=== PATIENT | female | born 1995 | race Caucasian/White ===

== ENCOUNTER → 2017-11-20 13:53 | Outpatient (CLI) | payer OTHER, SELFPAY ==
--- NOTE | 2017-11-20 13:54 | US_ITS ---
STUDY: ULTRASOUND OF THE FEMALE PELVIS - COMPLETE REASON FOR EXAM: Female, 22 years old. Normal bleeding. Pelvic pain. LMP: October 28, 2017. TECHNIQUE: Transabdominal and Transvaginal TECHNICAL QUALITY: Adequate. COMPARISON: CT of the abdomen and pelvis, February 21, 2017. FINDINGS: The uterus is anteverted and is in a midline position. The uterus measures 8.2 x 3.5 x 4.6 cm. Normal uterine cervix. The endometrium measures 4 mm in thickness, and is hyperechoic. There is no demonstrated endometrial mass. There is no demonstrated myometrial mass. I.U.D. - The patient does not have an I.U.D. The right ovary is visualized. The right ovary measures 2.5 x 1.6 x 1.5 cm. There are multiple follicles of the right ovary without a dominant cyst. There is no visualized right adnexal mass or complex lesion. There is normal arterial and normal venous vascularity. The left ovary is visualized. The left ovary measures 2.1 x 2.4 x 1.7 cm. There is no left ovarian cyst or ovarian mass. There is no visualized left adnexal mass or complex lesion. There is normal arterial and normal venous vascularity. There is no fluid in the cul-de-sac. The urinary bladder is grossly normal. US/Transvaginal Non- IMPRESSION: Normal female pelvis. Electronically Signed: Jose Evans DO at 16:09 EDT Tel [phone], Service support ,
--- NOTE | 2017-11-20 13:54 | US_ITS ---
STUDY: ULTRASOUND OF THE FEMALE PELVIS - COMPLETE REASON FOR EXAM: Female, 22 years old. Normal bleeding. Pelvic pain. LMP: October 28, 2017. TECHNIQUE: Transabdominal and Transvaginal TECHNICAL QUALITY: Adequate. COMPARISON: CT of the abdomen and pelvis, February 21, 2017. FINDINGS: The uterus is anteverted and is in a midline position. The uterus measures 8.2 x 3.5 x 4.6 cm. Normal uterine cervix. The endometrium measures 4 mm in thickness, and is hyperechoic. There is no demonstrated endometrial mass. There is no demonstrated myometrial mass. I.U.D. - The patient does not have an I.U.D. The right ovary is visualized. The right ovary measures 2.5 x 1.6 x 1.5 cm. There are multiple follicles of the right ovary without a dominant cyst. There is no visualized right adnexal mass or complex lesion. There is normal arterial and normal venous vascularity. The left ovary is visualized. The left ovary measures 2.1 x 2.4 x 1.7 cm. There is no left ovarian cyst or ovarian mass. There is no visualized left adnexal mass or complex lesion. There is normal arterial and normal venous vascularity. There is no fluid in the cul-de-sac. The urinary bladder is grossly normal. US/Pelvic (Non ) IMPRESSION: Normal female pelvis. Electronically Signed: Jose Evans DO at 16:09 EDT Tel [phone], Service support ,
== END ==
PROVIDERS: Family Provider Internal Medicine; PCP Internal Medicine; Visit Provider Nurse Practitioner Women's Health
DX: R10.2 Pelvic and perineal pain (principal)
CPT/HCPCS: 76830; 76856; 93976

== ENCOUNTER → 2019-03-25 10:56 | Outpatient (CLI) | payer OTHER, SELFPAY ==
[2018-11-29 09:41] VITALS: BMI 28.8
[2019-03-25 11:08] LABS: Mucous, Urine 0 SEEN /hpf (<or=2+); Red Blood Cells-Urine 0 SEEN /hpf (0-5); White Blood Cells 0 SEEN /hpf (0-5)
[2019-03-25 11:49] LABS: Color, Urine Yellow (Yellow); Glucose, Dipstick Normal (Normal); Ketone-Dipstick Negative (Negative); Leukocyte Esterase-Dipstick 25 /ul (Negative); Nitrite-Dipstick Negative (Negative); Occult Blood-Urine 50 /ul (Negative); Protein-Dipstick Negative (Negative); Urine Bilirubin Dipstick Negative (Negative); Urine Clarity Clear (Clear); Urine Urobilinogen Normal (Normal)
[2019-03-25 12:01] LABS: Bacteria RARE /hpf (None Seen); Squamous Epithelial Cells - UA 0-5 SEEN /hpf (5-10)
[2019-03-25 14:10] LABS: Vitamin B12 429 pg/mL (211-911)
== END ==
PROVIDERS: Family Provider Nurse Practitioner; PCP Nurse Practitioner; Referring Provider Nurse Practitioner; Visit Provider Nurse Practitioner
DX: R31.9 Hematuria, unspecified (principal); E53.8 Deficiency of other specified B group vitamins
CPT/HCPCS: 36415; 81001; 82607; 82746

== ENCOUNTER → 2020-01-09 12:54 | Outpatient (CLI) | payer OTHER, SELFPAY ==
[2020-01-09 08:56] VITALS: BMI 28.8
[2020-01-14 00:36] LABS: HPV Reflexed? NOT INDICATED
== END ==
PROVIDERS: PCP Family Medicine; Referring Provider Nurse Practitioner Women's Health; Visit Provider Nurse Practitioner Women's Health
DX: Z12.4 Encounter for screening for malignant neoplasm of cervix (principal)
CPT/HCPCS: 88175; G0145

== ENCOUNTER → 2020-01-28 13:32 | Outpatient (CLI) | payer OTHER, SELFPAY ==
[2020-01-09 08:56] VITALS: BMI 28.8
== END ==
PROVIDERS: PCP Family Medicine; Visit Provider Family Medicine Hospice and Palliative Medicine
DX: Z11.59 Encounter for screening for other viral diseases (principal)
CPT/HCPCS: 87635; 94799; U0003

== ENCOUNTER 2020-03-11 18:00 | Outpatient (RCR) | payer BC, OTHER, SELFPAY ==
[2020-01-09 08:56] VITALS: BMI 28.8
--- NOTE | 2020-02-11 08:58 | HP.PTEVAL ---
Patient's Visit Information PHUONG KEEN is a 24 year old F referred to Physical Therapy by Dr. Ketty Nichole MD with a diagnosis of R shoulder pain. Date of Evaluation: 01/29/20 Physical Therapist: Pedro Sharif DPT - Visit Plan Frequency: 1-2x /Week Duration: 4-6 Weeks Plan: Start with levator scap, rhomboid stretching, DN to same region. mid trap strengthening pec stretching. Postural strengthening. - Subjective Pt. is here today for her initial evaluation with diagnosis of R shoulder pain. Pt. reports having on and off pain for years, but has been worse recently. Pt. reports pain at R side of neck into her shoulder blade. 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 Pt. reports no mech of injury but has had increased symptoms throughout the day. No issues with sleeping. No N/T in either UE. Pt. reports feeling of tightness as well. Pt. has had temp relief with massage. Pt. reports no trigger of her symptoms, just worsens throughout the day. Occurs ~4 days per week. Pt. is hopeful to reduce symptoms in order to complete all recreational and job activities without limitations. - Pain R shoulder blade Pain Intensity (Out of 10): 3 Pain Intensity Range: 0, 6 - Objective POSTURE: Pt. is tall with a long neck and torso. Pt. tends to have a FH posture with incraesed thoracic kyphosis. Pt. is able to correct, but needs VC/TCing to do so. Normal shoulder postioning noted. PALPATION: Pt. has mild tenderness through R UT, worse pain at R levator scap and rhomboids. No pain with palpation on the L side. NEURO: normal throughout. Normal sensation, normal DTR of BUEs. ROM: cerivcal spine: flexion- normal, extension normal, Rotation- R tight mild increase NW, rotation L- NE, SB normal Bilat. R shoulder- full ROM, bt does have mild increase in symptoms with end range flexion and functional ER. MMT: pt. has 5/5 strength throughout BUEs, and 5/5 iso cervical spine. - Special Tests C/S Radiculapathy - Left Spurlings: Negative C/S Radiculapathy - Right Spurlings: Negative C/S Radiculapathy - Left Cervical distraction: Negative C/S Radiculapathy - Right Cervical distraction: Negative C/S Radiculapathy - Left Relief test: Negative C/S Radiculapathy - Right Relief test: Negative R Shoulder Lift Off Test - Subscapular Tear: Negative R Shoulder Empty Can - SS: Negative R Shoulder Belly Press - SupScap: Negative R Shoulder Neer - Impingement: Negative R Shoulder Carvalho Kevin - Impingement: Negative - Goals Goal 1:: LTG: Pt. to be I with HEP. Goal Time Frame: 4-6 Weeks Goal 2:: STG: Pt. to have <1-2 days of increased pain in R shoulder/scapular region. Goal Time Frame: 2-4 Weeks Goal 3:: LTG: Pt. to demonstrate proper posture throughout PT session, indicating increased postural awareness. Goal Time Frame: 4-6 Weeks Goal 4:: STG: PT. to have full R shoulder and cervical spine without increase in symptoms. Goal Time Frame: 2-4 Weeks Goal 5:: LTG: pt. to have no pain throughout work day. Goal Time Frame: 4-6 Weeks - Rehabilitation Potential Physical Therapy Diagnosis: Pt. has signs and symptoms consistent with R shoulder blade pain, closer to levator scapulea and rhomboid region. Pt. has limited cervical spine rotation secondary to tightness, levator scapulea/rhomboid pain on R side. Pt. does have poor posture, but is able to correct. Pt. would benefit from PT to increase postural control/endurance and tissue tension reduction. Rehabilitation Potential: Excellent - Anticipated Interventions Patient/Client Instruction: Educate patient on: Condition, Plan of Care, Risk Factors, Benefits of Fitness Program For the Purpose of:: To facilitate caregiver knowledge, To improve self management, To prevent re-injury, To improve ability to perform tasks related to life management, To improve tolerance to ADL's Therapeutic Exercise to Include: Strength training, Power training, Postural training, Flexibilty training, Gait and locomotor training, Passive ROM, Active ROM For the Purpose of:: To decrease pain, To increase ROM, To improve nutrient delivery to tissue, To increase oxygenation perfusion, To improve muscle performance and motor function, To improve health of tissue, To decrease soft tissue restriction, To increase flexibility/ROM, To improve endurance Manual Therapy Techniques to Include: Functional dry needling, Soft tissue mobilization For the Purpose of:: To decrease pain, To decrease swelling/inflammation, To increase ROM, To improve nutrient delivery to tissue Thank you for the opportunity to evaluate your patient. For Medicare and Medicare HMO plans, please review the plan of care and approve it. It will need to be FAXED BACK to us at [phone] for Medicare purposes. For Medicare only, by signing this I certify the plan of care. Please let me know if there are questions or concerns regarding this plan of care. Physician Signature: Date:
== END 2020-03-11 19:00 | disposition home or self-care (01) ==
LOC: PT 18:00
PROVIDERS: PCP Family Medicine; Referring Provider Family Medicine; Visit Provider Family Medicine
DX: S46.811D Strain of other muscles, fascia and tendons at shoulder and upper arm level, right arm, subsequent encounter (principal)
CPT/HCPCS: 97110; 97140; 97161

== ENCOUNTER → 2020-04-10 08:58 | Outpatient (CLI) | payer BC, SELFPAY ==
[2020-01-09 08:56] VITALS: BMI 28.8
[2020-04-10 11:00] LABS: Absolute Lymphocyte Count 1.73 X10^3/uL (0.83-4.51); Absolute Neutrophil Count 2.4 X10^3/uL (2.0-7.7); Basophil# 0.05 X10^3/uL; Basophil% 1.1 % (0-1); Eosinophil# 0.13 X10^3/uL; Eosinophils% 2.8 % (0-5); Hemoglobin 13.8 g/dL (12.0-15.0); Lymphocyte # 1.73 X10^3/ul (4.0); Lymphocyte % 36.7 % (19-41); Mean Corp Hgb Conc 32.1 g/dL (32-36); Mean Corpuscular Hgb 28.4 pg (27.0-32.0); Mean Corpuscular Volume 88.5 fL (81-99); Mean Platelet Vol. 11.5 fl (6.2-12.0); Monocyte% 8.5 % (0-10); NRBC Flagged by Analyzer 0 % (0-5); Neutrophil % 50.7 % (47-70); Platelet Count 174 K/mm3 (150-450); RBC Distribution Width SD 38.5 fl (35.1-43.9); Red Blood Count 4.86 M/mm3 (4.2-5.4); White Blood Count 4.7 K/mm3 (4.4-11.0)
[2020-04-10 11:20] LABS: ALB/GLOB Ratio 0.9 RATIO (0.9-2.4); AST(SGOT) 23 U/L (15-37); Alanine Aminotransfer ALT/SGPT 45 U/L (13-56); Albumin, Serum 4.1 g/dL (3.2-5.0); Alkaline Phosphatase 53 U/L (45-117); Anion Gap 6 (5-15); BUN 14 mg/dL (7-18); BUN/Creat Ratio 13.9 RATIO (10-20); Calcium,Total 9.1 mg/dL (8.5-10.1); Chloride 107 mmol/L (98-107); Creatinine, Serum 1.01 mg/dL (0.55-1.02); EST Glomerular Filtration Rate 70 mL/min (>60); Est Glom Filt Rate - Afr Amer 85 mL/min (>60); Globulin 4.4 g/dL (2.2-4.2); Glucose 97 mg/dL (74-106); Potassium 3.9 mmol/L (3.5-5.1); Protein, Total 8.5 g/dL (6.4-8.2); Sodium Level 139 mmol/L (136-145)
[2020-04-12 16:07] LABS: Beef <0.10 kU/L (Class 0); Corn <0.10 kU/L (Class 0); Egg, Whole <0.10 kU/L (Class 0); Milk (Cow) 0.16 kU/L (Class 0/I); Peanut <0.10 kU/L (Class 0); Pork <0.10 kU/L (Class 0); Soybean <0.10 kU/L (Class 0); Wheat <0.10 kU/L (Class 0)
[2020-04-12 16:12] LABS: Chocolate <0.10 kU/L (Class 0)
[2020-04-13 20:07] LABS: Endomysial Antibody IgA Negative (Negative)
[2020-04-13 20:16] LABS: Deamidated Gliadin IgA 3 units (0-19); Deamidated Gliadin IgG 2 units (0-19); Immunoglobulin A 223 mg/dL (87-352); t-Transglutaminase IgA <2 U/mL (0-3)
== END ==
PROVIDERS: PCP Family Medicine; Referring Provider Family Medicine; Visit Provider Family Medicine
DX: K90.49 Malabsorption due to intolerance, not elsewhere classified (principal); R10.9 Unspecified abdominal pain
CPT/HCPCS: 36415; 80053; 82784; 83516; 84443; 85025; 86003; 86005; 86255

== ENCOUNTER → 2020-04-21 | Outpatient (CLI) | payer BC, SELFPAY ==
[2020-04-21 08:20] VITALS: BMI 28.6
== END | disposition home or self-care (01) ==
LOC: LABSPEC 13:05
PROVIDERS: PCP Family Medicine; Visit Provider Nurse Practitioner Women's Health
DX: N89.8 Other specified noninflammatory disorders of vagina (principal)
CPT/HCPCS: 87070; 87205

== ENCOUNTER → 2020-05-12 10:24 | Outpatient (CLI) | payer BC, SELFPAY ==
[2020-04-21 08:20] VITALS: BMI 28.6
[2020-05-12 11:42] LABS: hCG Titer Quant., Serum 886 mIU/mL (1-3)
== END ==
PROVIDERS: PCP Family Medicine; Referring Provider Nurse Practitioner Women's Health; Visit Provider Nurse Practitioner Women's Health
DX: N89.8 Other specified noninflammatory disorders of vagina (principal); N91.2 Amenorrhea, unspecified
CPT/HCPCS: 36415; 84702; 87070; 87077; 87186; 87205

== ENCOUNTER → 2020-05-14 12:00 | Outpatient (CLI) | payer BC, SELFPAY ==
[2020-05-12 10:37] VITALS: BMI 28.5
[2020-05-14 12:50] LABS: hCG Titer Quant., Serum 1095 mIU/mL (1-3)
== END ==
PROVIDERS: PCP Family Medicine; Referring Provider Nurse Practitioner Women's Health; Visit Provider Nurse Practitioner Women's Health
DX: N91.2 Amenorrhea, unspecified (principal)
CPT/HCPCS: 36415; 84702

== ENCOUNTER → 2020-05-16 09:26 | Outpatient (CLI) | payer BC, SELFPAY ==
[2020-05-12 10:37] VITALS: BMI 28.5
[2020-05-16 10:56] LABS: hCG Titer Quant., Serum 1189 mIU/mL (1-3)
== END ==
PROVIDERS: PCP Family Medicine; Referring Provider Obstetrics & Gynecology; Visit Provider Obstetrics & Gynecology
DX: N91.2 Amenorrhea, unspecified (principal)
CPT/HCPCS: 36415; 84702

== ENCOUNTER → 2020-05-19 13:34 | Outpatient (CLI) | payer BC, SELFPAY ==
[2020-05-12 10:37] VITALS: BMI 28.5
[2020-05-19 14:31] LABS: hCG Titer Quant., Serum 269 mIU/mL (1-3)
== END ==
PROVIDERS: PCP Family Medicine; Referring Provider Nurse Practitioner Women's Health; Visit Provider Nurse Practitioner Women's Health
DX: O02.1 Missed abortion (principal); Z3A.00 Weeks of gestation of pregnancy not specified
CPT/HCPCS: 36415; 84702; 86850; 86900; 86901

== ENCOUNTER → 2020-05-26 08:49 | Outpatient (CLI) | payer BC, SELFPAY ==
[2020-05-12 10:37] VITALS: BMI 28.5
--- NOTE | 2020-05-26 09:15 | POC_PTH ---
PATIENT: PHUONG KEEN LOC: [facility]#:[id number] AGE/SX: 29/F ROOM: RE05/26/[address]: NELLY Leonard : 1995 BED: DIS: SPEC #: [id number] RECD: 05/26/20 12:53 STATUS: SHANICE REFermin #: [id number] MARINE: 05/26/20 09:[address]: Estella Hardin NP DEPT: SURGICAL PATHOLOGY RECD BY: Krystal Bess ENTERED: 05/26/20 13:26 SP TYPE: PROD CONC OTHR DR: Dr. Tawanda Parker MD Tissues: Product of conception, NOS Procedures: Surgery Specimen Level IV HEADER OPERATION: SAB PRE-OP DIAGNOSIS: Products of conception TISSUE SUBMITTED: Products of conception MICROSCOPIC DIAGNOSIS Products of conception: A fragment of inflamed decidua. See comment. ELPIDIO:bishop 05/27/20 COMMENT Chorionic villi are not identified. Clinical correlation and appropriate follow up are necessary. MICROSCOPIC DESCRIPTION Slides are reviewed. GROSS DESCRIPTION Received is one container labeled with the patient's name and not further designated. The specimen consists of a glistening fragment of pink-christine soft tissue measuring 4 x 2 x 0.2 cm. The specimen is totally submitted in one cassette. / AM:bishop 05/26/20 TC:5 [facility]: [id number]
[2020-05-26 09:31] LABS: hCG Titer Quant., Serum 22 mIU/mL (1-3)
== END ==
PROVIDERS: PCP Family Medicine; Referring Provider Nurse Practitioner Women's Health; Visit Provider Nurse Practitioner Women's Health
DX: O03.9 Complete or unspecified spontaneous abortion without complication (principal)
CPT/HCPCS: 36415; 84702; 88305

== ENCOUNTER → 2020-06-03 12:57 | Outpatient (CLI) | payer BC, SELFPAY ==
[2020-05-12 10:37] VITALS: BMI 28.5
[2020-06-03 14:01] LABS: hCG Titer Quant., Serum 1 mIU/mL (1-3)
== END ==
PROVIDERS: PCP Family Medicine; Referring Provider Nurse Practitioner Women's Health; Visit Provider Nurse Practitioner Women's Health
DX: O03.9 Complete or unspecified spontaneous abortion without complication (principal)
CPT/HCPCS: 36415; 84702

== ENCOUNTER → 2020-11-16 08:48 | Outpatient (CLI) | payer BC, SELFPAY ==
[2020-05-12 10:37] VITALS: BMI 28.5
[2020-11-16 11:54] LABS: Estradiol 124.4 pg/mL; Follicle Stimulating Hormone 1.9 mIU/mL; Free T3 2.5 pg/mL (2.18-3.98); Luteinizing Hormone 1.6 mIU/mL; Prolactin 8.6 ng/mL; Thyroid Stim Hormone (TSH) 1.46 uIU/mL (0.358-3.74)
[2020-11-16 12:25] LABS: HIV - WCH Non-Reactive (Nonreactive); Hepatitis B Surface Antibody Reactive; Hepatitis B Surface Antigen Non-Reactive (Nonreactive); Hepatitis C Antibody Non-Reactive (Nonreactive); Progesterone Level 13.41 ng/mL (See Comment); Rubella IgG Reactive (Nonreactive); Syphilis Antibodies Non-reactive
[2020-11-17 20:51] LABS: V-Zoster IgG (Immunity) 264 index (Immune >165)
== END ==
PROVIDERS: PCP Family Medicine; Visit Provider Student in an Organized Health Care Education/Training Program
DX: Z31.69 Encounter for other general counseling and advice on procreation (principal); R10.2 Pelvic and perineal pain
CPT/HCPCS: 36415; 82670; 83001; 83002; 84144; 84146; 84443; 84481; 86703; 86706; 86762; 86780; 86787; 86803; 87340

== ENCOUNTER → 2020-12-22 17:16 | Outpatient (CLI) | payer BC, SELFPAY ==
[2020-05-12 10:37] VITALS: BMI 28.5
[2020-12-22 17:56] LABS: Absolute Lymphocyte Count 2.43 X10^3/uL (0.83-4.51); Absolute Neutrophil Count 5.1 X10^3/uL (2.0-7.7); Basophil# 0.06 X10^3/uL; Basophil% 0.7 % (0-1); Eosinophil# 0.16 X10^3/uL; Eosinophils% 1.9 % (0-5); Hematocrit 40.6 % (37-47); Hemoglobin 13.5 g/dL (12.0-15.0); Lymphocyte # 2.43 X10^3/ul (0.83-4.51); Lymphocyte % 29.1 % (19-41); Mean Corp Hgb Conc 33.3 g/dL (32-36); Mean Corpuscular Hgb 28.6 pg (27.0-32.0); Mean Platelet Vol. 11.5 fl (6.2-12.0); Monocyte# 0.56 X10^3/uL; Monocyte% 6.7 % (0-10); NRBC Flagged by Analyzer 0 % (0-5); Neutrophil # 5.09 X10^3/uL (2.7-7.7); Neutrophil % 61.1 % (47-70); Platelet Count 170 K/mm3 (150-450); RBC Distribution Width CV 12.2 % (11.6-14.6); RBC Distribution Width SD 38.3 fl (35.1-43.9); Red Blood Count 4.72 M/mm3 (4.2-5.4); White Blood Count 8.3 K/mm3 (4.4-11.0)
[2020-12-23 09:58] LABS: HIV - WCH Non-Reactive (Nonreactive); Hepatitis B Surface Antigen Non-Reactive (Nonreactive); Hepatitis C Antibody Non-Reactive (Nonreactive); Rubella IgG Reactive (Nonreactive); Syphilis Antibodies Non-reactive
[2020-12-26 03:06] LABS: Chlamydia By Nucleic Acid AMP Negative (Negative)
[2020-12-26 10:09] LABS: Gonococcus By Nucleic Acid AMP Negative (Negative)
== END ==
PROVIDERS: PCP Family Medicine; Visit Provider Student in an Organized Health Care Education/Training Program
DX: Z11.3 Encounter for screening for infections with a predominantly sexual mode of transmission (principal); Z32.01 Encounter for pregnancy test, result positive
CPT/HCPCS: 85025; 86703; 86762; 86780; 86803; 87086; 87088; 87340; 87491; 87591

== ENCOUNTER → 2021-01-14 14:12 | Outpatient (CLI) | payer BC, SELFPAY ==
[2020-05-12 10:37] VITALS: BMI 28.5
== END ==
PROVIDERS: PCP Family Medicine; Visit Provider Obstetrics & Gynecology
DX: Z00.00 Encounter for general adult medical examination without abnormal findings (principal)
CPT/HCPCS: 36415

== ENCOUNTER → 2021-05-03 08:48 | Outpatient (CLI) | payer OTHER, SELFPAY ==
[2021-05-03 10:00] LABS: Hematocrit 38.3 % (37-47); Hemoglobin 12.6 g/dL (12.0-15.0); Mean Corp Hgb Conc 32.9 g/dL (32-36); Mean Platelet Vol. 11.7 fl (6.2-12.0); Platelet Count 133 K/mm3 (150-450); RBC Distribution Width CV 13.4 % (11.6-14.6); RBC Distribution Width SD 43.5 fl (35.1-43.9); Red Blood Count 4.35 M/mm3 (4.2-5.4); White Blood Count 8.7 K/mm3 (4.4-11.0)
[2021-05-03 10:04] LABS: Glucose Challenge Gest 1H 50g 80 mg/dL (70-140)
== END ==
PROVIDERS: PCP Family Medicine; Visit Provider Obstetrics & Gynecology
DX: Z34.82 Encounter for supervision of other normal pregnancy, second trimester (principal)
CPT/HCPCS: 36415; 82950; 85027

== ENCOUNTER → 2021-05-24 11:26 | Outpatient (CLI) | payer OTHER, SELFPAY | PROVIDERS: PCP Family Medicine; Visit Provider Obstetrics & Gynecology | DX: O23.43 Unspecified infection of urinary tract in pregnancy, third trimester (principal); N39.0 Urinary tract infection, site not specified | CPT/HCPCS: 87086; 87088 ==

== ENCOUNTER 2021-07-09 15:37 | Outpatient (CLI) | payer OTHER, SELFPAY ==
[2021-07-09 16:27] LABS: Hematocrit 38.5 % (37-47); Hemoglobin 13.1 g/dL (12.0-15.0); Mean Corpuscular Hgb 29.1 pg (27.0-32.0); Mean Corpuscular Volume 85.6 fL (81-99); Mean Platelet Vol. 12.3 fl (6.2-12.0); Platelet Count 130 K/mm3 (150-450); RBC Distribution Width CV 13.2 % (11.6-14.6); RBC Distribution Width SD 40.9 fl (35.1-43.9); White Blood Count 8.4 K/mm3 (4.4-11.0)
[2021-07-09 17:05] LABS: Partial Thromboplast Time 30.4 Seconds (24.1-36.2); Prothrombin Time (Protime)PT. 12.3 SECONDS (11.7-14.9)
== END 2021-07-09 23:59 | disposition short-term general hospital (02) ==
LOC: WOBLAB 15:38
PROVIDERS: PCP Family Medicine; Visit Provider Student in an Organized Health Care Education/Training Program
DX: Z36.85 Encounter for antenatal screening for Streptococcus B (principal)
CPT/HCPCS: 36415; 85027; 85610; 85730; 87081

== ENCOUNTER 2021-07-17 22:04 | Outpatient (CLI) | payer OTHER, SELFPAY ==
[2021-07-17 22:18] VITALS: BP 131/82; PULSE 68; TEMP 36.7
[2021-07-17 22:38] VITALS: BMI 32.8
[2021-07-17 23:04] LABS: ROM Internal Control Test YES-OK TO RESULT pt. (Internal QC); ROM Patient Test Negative (Negative)
--- NOTE | 2021-07-18 09:12 | PCM.PN.OB ---
Subjective Subjective 26-year-old at 37/4 weeks presenting with leaking. Denies contractions. Reports movement. ROM negative. status reassuring with reactive NST. heart rate 125/moderate variability/accelerations+/no decelerations, toco quiet. Discharge home with labor precautions. Patient has follow-up in office this week. Objective Data Objective Data Vital Signs: Vital Signs Temp Pulse BP 98.0 F 68 131/82 H 07/17/21 22:18 07/17/21 22:18 07/17/21 22:18 Weight: 112.854 kg Body Mass Index (BMI) 32.8 Lab / Micro Data Labs: Laboratory Results - last 24 hr 07/17/21 22:25: Vag Amniotic Fld Detect Negative
== END 2021-07-17 23:59 | disposition home or self-care (01) ==
LOC: WPOUT 22:07 → WP 22:08
PROVIDERS: PCP Family Medicine; Visit Provider Student in an Organized Health Care Education/Training Program
DX: O42.92 Full-term premature rupture of membranes, unspecified as to length of time between rupture and onset of labor (principal); Z3A.37 37 weeks gestation of pregnancy
CPT/HCPCS: 59025; 59050; 84112; 99218; G0378

== ENCOUNTER 2021-08-03 15:17 | Outpatient (CLI) | payer OTHER, SELFPAY | END 2021-08-03 23:59 | disposition short-term general hospital (02) | LOC: LABSPEC 15:31 | PROVIDERS: PCP Family Medicine; Visit Provider Student in an Organized Health Care Education/Training Program | DX: Z03.818 Encounter for observation for suspected exposure to other biological agents ruled out (principal) | CPT/HCPCS: 87635; U0003; U0005 ==

== ENCOUNTER 2021-08-09 07:05 | Inpatient (IN) | payer OTHER, SELFPAY ==
[2021-08-09] VITALS (42 sets, daily range): BP systolic 100–164; BP diastolic 51–95; PULSE 36–84; RESP 16–18; TEMP 36.2–37.4; O2SAT 77–100; BMI 34.7
[2021-08-09] MEDS: 0.9% Saline Lock 10 ML Syringe IV ×2 (07:55→08:33)
--- NOTE | 2021-08-09 08:13 | HP.PCM.OB_ITS ---
History and Physical Date of Admission: 08/09/21
--- NOTE | 2021-08-09 08:13 | PCM.HP.BLA ---
History and Physical Date of Admission: 08/09/21
[2021-08-09 08:14] LABS: Absolute Lymphocyte Count 1.73 X10^3/uL (0.83-4.51); Absolute Neutrophil Count 4.6 X10^3/uL (2.0-7.7); Basophil# 0.05 X10^3/uL; Basophil% 0.7 % (0-1); Eosinophils% 1.4 % (0-5); Hematocrit 34.9 % (37-47); Hemoglobin 12.4 g/dL (12.0-15.0); Lymphocyte # 1.73 X10^3/ul (0.83-4.51); Lymphocyte % 24.6 % (19-41); Mean Corp Hgb Conc 35.5 g/dL (32-36); Mean Corpuscular Hgb 30.5 pg (27.0-32.0); Mean Corpuscular Volume 85.7 fL (81-99); Mean Platelet Vol. 11.9 fl (6.2-12.0); Monocyte# 0.54 X10^3/uL; Monocyte% 7.7 % (0-10); NRBC Flagged by Analyzer 0 % (0-5); Neutrophil # 4.55 X10^3/uL (2.7-7.7); Neutrophil % 64.7 % (47-70); Platelet Count 130 K/mm3 (150-450); RBC Distribution Width CV 12.9 % (11.6-14.6); Red Blood Count 4.07 M/mm3 (4.2-5.4)
--- NOTE | 2021-08-09 08:15 | PCM.HP.OB ---
HPI - General General Date of Admission: 08/09/21 HPI Narrative 26 yo at 40/6w, BROOKE 08/03/21 by LMP, admitted for term induction of labor. Denies leaking of fluid, vaginal bleeding, regular contractions. Reports movement. Denies headache, vision changes, chest pain or shortness of breath, nausea or vomiting, diarrhea or constipation, fevers or chills. complicated by: Covid x2 (growth AGA) and gestational thrombocytopenia PFSH PFS Medical History (Updated 08/09/21 @ 08:[address] Coreen Malin, DO) Hydradenitis Scoliosis Home Medications prenat.vits,peng,pye-[id number] 2 tab PO DAILY 04/21/20 [History Last Taken 07/17/21] Acidophilus Probiotic 175 mg PO.IVFORM DAILY 08/09/21 [History Last Taken Unknown] Colace 100 mg PO.IVFORM DAILY 08/09/21 [History Last Taken Unknown] Fish Oil 1,400 mg PO.IVFORM DAILY 08/09/21 [History Last Taken Unknown] Allergy/AdvReac Type Severity Reaction Status Date / Time metronidazole [From Flagyl] Allergy Rash Verified 08/09/21 08:10 adhesive tape AdvReac Rash Verified 08/09/21 08:10 Family History Father Thyroid disorder Mother Hypertension Social History Smoking Status: Never smoker alcohol intake: never substance use type: does not use caffeine: Yes what type of physical activity do you participate in: walking and weight training frequency: 3-4 times per week seatbelt use: always do you feel safe at home: Yes 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 2 Elective abortions Hx Para 0 Spontaneous abortions 1 Hx # Term Pregnancies Ectopic pregnancies Hx # Pregnancies Multiple births # of living children NST FHR Rate Baby A Baseline: 155 Accelerations:: 15 x 15 Decelerations:: None NST Reactive:: Yes Uterine Activity:: quiet ROS ROS Narrative Negative otherwise stated above Vital Signs Vital Signs Vital Signs: 08/09/21 07:58 Temperature 99.3 F H Temperature Source Temporal Pulse Rate 77 Blood Pressure 137/89 H BP Systolic 137 BP Diastolic 89 Pulse Ox 98 Weight Weight: 119.295 kg Body Mass Index (BMI) 34.7 Physical Exam Const alert, oriented x3 and no apparent distress HEENT normocephalic Head and Scalp: atraumatic Eyes PERRL Neck full ROM Resp normal respiratory effort and clear to auscultation bilaterally Cardio regular rate and regular rhythm GI normal to inspection, nondistended, normoactive bowel sounds Inspection: gravid Narrative: CE 1-2 cm per RN Extremity no pedal edema Neuro no focal motor deficits and no sensory deficits noted Psych mental status grossly normal Labs Labs Labs: Blood Type A POSITIVE Antibody Screen NEGATIVE Hct 34.9 % (37-47) L Hgb 12.4 g/dL (12.0-15.0) Syphilis Total Ab Non-reactive VZV IgG Antibody 264 index (Immune >165) Rubella IgG Antibody Reactive (Nonreactive) Hep Bs Antigen Non-Reactive (Nonreactive) Neisseria gonorrhoeae DNA (ANYA) Negative (Negative) HIV 1&2 Antibody Non-Reactive (Nonreactive) Glucose 1 Hr 50 gm 80 mg/dL (70-140) Miscellaneous Test Assessment & Plan (1) Elective induction of labor planned: PLAN: 26 yo at 40/6w, BROOKE 08/03/21 by LMP, admitted for term induction of labor. complicated by: Covid in and gestational thrombocytopenia. -Admit to labor and delivery -Cytotec induction. 25 mcg cytotec q4 hr -Routine orders -Anesthesia to see -GTCP, plt 130 today -COVID in , growth AGA
[2021-08-09] MEDS: miSOPROStol 25 MCG TABLET VAGINAL ×2 (08:16→13:23)
[2021-08-09] MEDS: Lactated Ringers 1,000 ML 50 ML IV (17:05)
[2021-08-09] MEDS: Lactated Ringers 500 ML 999 ML IV ×2 (17:11→21:00)
--- NOTE | 2021-08-09 17:35 | PCM.PN.BLA ---
Progress Note Pt seen and evaluated. 4 cm per RN. Up at bedside rocking with contractions. Very painful with contractions. No DUMONT, vision changes, chest pain, dyspnea, nausea/emesis, RUQ pain. BP elevated 160, repeat systolic 150s. BP elevation likely secondary to painful contractions. Will add CMP, LDH, urinalysis and urine protein/creatinine ratio SOCIAL SERVICE DIRECTOR in room now readying for epidural Cat I tracing Plan for AROM this evening. For pitocin. Discussed plan of care with bedside RN, pt and .
[2021-08-09] MEDS: fentaNYL-bupivacaine (epidural) 100 ML BAG EPIDURAL (17:45)
[2021-08-09 19:30] LABS: ALB/GLOB Ratio 0.6 RATIO (0.9-2.4); AST(SGOT) 20 U/L (15-37); Alanine Aminotransfer ALT/SGPT 24 U/L (13-56); Albumin, Serum 2.8 g/dL (3.2-5.0); Alkaline Phosphatase 114 U/L (45-117); Anion Gap 9 (5-15); BUN 9 mg/dL (7-18); BUN/Creat Ratio 10.9 RATIO (10-20); Calcium,Total 8.8 mg/dL (8.5-10.1); Chloride 107 mmol/L (98-107); Creatinine, Serum 0.82 mg/dL (0.55-1.02); EST Glomerular Filtration Rate 88 mL/min (>60); Est Glom Filt Rate - Afr Amer 106 mL/min (>60); Estimated Creatinine Clearance 121.58 ml/min; Globulin 4.5 g/dL (2.2-4.2); Glucose 89 mg/dL (74-106); LDH 216 U/L (84-246); Potassium 3.5 mmol/L (3.5-5.1); Protein, Total 7.3 g/dL (6.4-8.2); Sodium Level 138 mmol/L (136-145)
[2021-08-09 19:53] LABS: Bacteria 0 SEEN /hpf (None Seen); Mucous, Urine 0 SEEN /hpf (<or=2+); Red Blood Cells-Urine 0 SEEN /hpf (0-5); White Blood Cells 0 SEEN /hpf (0-5)
[2021-08-09 20:06] LABS: Protein, Urine (Random) 8.3 mg/dL (<11.9); Protein:Creat Ratio 251 mg/g CRE (0-200)
[2021-08-09 20:22] LABS: Color, Urine Yellow (Yellow); Glucose, Dipstick Normal (Normal); Ketone-Dipstick Negative (Negative); Leukocyte Esterase-Dipstick Negative /ul (Negative); Nitrite-Dipstick Negative (Negative); Occult Blood-Urine Negative /ul (Negative); Protein-Dipstick Negative (Negative); Urine Bilirubin Dipstick Negative (Negative); Urine Clarity Sl. Cloudy (Clear); Urine Urobilinogen Normal (Normal)
[2021-08-09 20:42] LABS: Squamous Epithelial Cells - UA 0-5 SEEN /hpf (5-10)
[2021-08-09] MEDS: Amnioinfusion- 0.9% NS 1,000 ML IV.SOLN. 1000 ML INTRA-UTER (21:57)
[2021-08-09] MEDS: Cefazolin 2 GM in 0.9% Normal Saline 100 ML IV (22:39)
--- NOTE | 2021-08-09 23:28 | EX.PCM.OBRPT ---
Maternal Data Information Final BROOKE: 08/03/21 Final BROOKE Source: LMP Details Operative Information Date of Procedure: 08/09/21 Pre-Operative Diagnosis: Pratt intrauterine , Nonreassuring heart tones Post-Operative Diagnosis: Pratt intrauterine , Nonreassuring heart tones Classification: Stat Estimated Blood Loss: 800cc Fluids Replaced: 1000cc Findings Description of Procedure: 26-year-old G2, P0 at 40/6 weeks admitted for induction of labor at term. Patient progressed through labor, artificial rupture membranes. heart rate deceleration to a ross of the 40s occurred in OB ER called, patient taken back to the operating room. Provider was notified and met in OR. Vaginal exam in operating room noted patient to be dilated at 9 cm and 0 station. heart tones had recovered at that time in the 90-100s. Discussed findings at that time with patient. Discussed possibility for attempt of vaginal delivery with pushing with next contraction. Also offered section at that time. Patient elected for attempt at vaginal delivery. Father brought into room. heart rate deceleration occurred again with ross into the 40s and 50s after contraction, prior to effort of pushing. Based on the heart rate and station, decision for emergent section made. Risks, benefits, alternatives discussed the patient. Risks include but are not limited to: Risk of bleeding to the point of transfusion, infection, injury to surrounding tissue including bowel/bladder requiring prolonged Andrea catheter use, VTE, ICU admission. Patient consented verbally. Patient in the supine position with a left lateral tilt. Abdomen splashed with Betadine. Prepped and draped in the usual sterile fashion. Pfannenstiel skin incision made with scalpel carried down to fascia which was nicked. Fascia extended bluntly. Rectus muscle bluntly and peritoneum entered bluntly. Bladder blade placed. Low transverse uterine incision made with scalpel, uterus entered bluntly and hysterotomy extended. Hand placed into the uterus noting occiput posterior position with head in the pelvis. Called for hand from below for assistance. During attempt of delivery of head, banjo scissors were used to T the uterus with small vertical incision. With the assistance of vaginal elevation of head, head delivered followed by body. Cord clamped and cut, baby to nursing. No nuchal cord. Manual extraction of placenta. Uterus exteriorized and cleared of all clots. Vertical portion of hysterotomy closed with a running locking stitch starting at the apex moving down towards the transverse portion of the incision. A second baseball stitch was placed vertically in this area as well. Transverse portion of the hysterotomy was then closed with a running locking stitch. A second vertical imbricating stitch was then placed. Bladder noted to be low below the hysterotomy. Uterus replaced into the abdomen. Orsi placed over hysterotomy closure, hemostatic. Peritoneum attempted to be closed however bowel and omentum was protruding therefore suture was cut and peritoneum not reapproximated. Fascia then closed with a running stitch. Examination completed during fascial closure to ensure that bowel and omentum were not incorporated into closure. Subcutaneous tissue closed with a running stitch. Skin closed with a running subcuticular stitch. Due to prolonged head elevation with hand from below, vaginal exam was completed. Vaginal exam did not note any vaginal lacerations, cervix intact. At the end of the procedure all needle, lap, sponge counts correct x3. Because of T of hysterotomy would advise against attempt for trial of labor after section. Will continue ancef for 24 hours post operatively due to emergent nature of procedure. Infant A Gender: Male (1 minute): 8 (5 minute): 9
[2021-08-10] VITALS (15 sets, daily range): BP systolic 112–139; BP diastolic 61–80; PULSE 59–83; RESP 16–18; TEMP 35.7–36.6; O2SAT 99–100
[2021-08-10] MEDS: Oxytocin 30 units/NS 500 ml 30 UNITS/500 ML IV.SOLN 167 UNITS IV (00:04)
[2021-08-10] MEDS: Ketorolac 30 MG/ML Syringe IV ×4 (00:07→18:44)
[2021-08-10] MEDS: Acetaminophen 500 MG Tablet 1000 MG PO ×4 (00:52→18:44)
--- NOTE | 2021-08-10 02:01 | NURSING ---
This RN present and observed SN Amber Le and agrees with all documentation.
[2021-08-10] MEDS: Lactated Ringers 1,000 ML 100 ML IV (03:20)
[2021-08-10] MEDS: Cefazolin 2 GM in 0.9% Normal Saline 100 ML IV ×3 (05:17→18:42)
[2021-08-10 06:25] LABS: Hematocrit 32.9 % (37-47); Hemoglobin 11.4 g/dL (12.0-15.0); Mean Corp Hgb Conc 34.7 g/dL (32-36); Mean Corpuscular Hgb 30.1 pg (27.0-32.0); Mean Corpuscular Volume 86.8 fL (81-99); Mean Platelet Vol. 11.2 fl (6.2-12.0); Platelet Count 111 K/mm3 (150-450); RBC Distribution Width CV 13.1 % (11.6-14.6); RBC Distribution Width SD 41.2 fl (35.1-43.9); Red Blood Count 3.79 M/mm3 (4.2-5.4); White Blood Count 13.7 K/mm3 (4.4-11.0)
--- NOTE | 2021-08-10 08:17 | PCM.PN.OB ---
Subjective Subjective Vaginal pain resolved.Postop day 1. Patient feeling well. Pain controlled. Lochia minimal. Has ambulated. Working on breast-feeding. Objective Data Objective Data Vital Signs: Vital Signs Temp Pulse Resp BP Pulse Ox 97.9 F 66 16 115/73 100 08/10/21 05:21 08/10/21 07:45 08/10/21 07:45 08/10/21 05:21 08/10/21 07:45 Oxygen Delivery Method Room Air Weight: 119.295 kg Body Mass Index (BMI) 34.7 Intake & Output: Intake and Output for Last 24 Hours 08/08/21 08/09/21 08/10/21 23:59 23:59 23:59 Intake Total 3135 / 3135 865 / 865 Output Total 1950 / 1950 1050 / 1050 Balance 1185 / 1185 -185 / -185 Lab / Micro Data Result Diagrams: 08/10/21 06:15 08/09/21 18:50 Labs: Laboratory Results - last 24 hr 08/09/21 07:55: Blood Type A POSITIVE, Antibody Screen NEGATIVE 08/09/21 18:50: Sodium 138, Potassium 3.5, Chloride 107, Carbon Dioxide 22.0, Anion Gap 9, BUN 9, Creatinine 0.82, Estim Creat Clear Calc 121.58, Est GFR (MDRD) Af Amer 106, Est GFR (MDRD) Non-Af 88, BUN/Creatinine Ratio 10.9, Glucose 89, Calcium 8.8, Total Bilirubin 0.10 L, AST 20, ALT 24, Alkaline Phosphatase 114, Lactate Dehydrogenase 216, Total Protein 7.3, Albumin 2.8 L, Globulin 4.5 H, Albumin/Globulin Ratio 0.6 L 08/09/21 19:30: Urine Color Yellow, Urine Clarity Sl. Cloudy, Urine pH 8.0, Ur Specific [place] 1.010, Urine Protein Negative, Urine Glucose (UA) Normal, Urine Ketones Negative, Urine Occult Blood Negative, Urine Nitrite Negative, Urine Bilirubin Negative, Urine Urobilinogen Normal, Ur Leukocyte Esterase Negative, Urine RBC 0 SEEN, Urine WBC 0 SEEN, Ur Squamous Epith Cells 0-5 SEEN, Urine Bacteria 0 SEEN, Urine Mucus 0 SEEN 08/09/21 19:30: U Random Total Protein 8.3, Urine Creatinine 33.10, Protein/Creatinin Ratio 251 H 08/10/21 06:15: WBC 13.7 H, RBC 3.79 L, Hgb 11.4 L, Hct 32.9 L, MCV 86.8, MCH 30.1, MCHC 34.7, RDW Std Deviation 41.2, RDW Coeff of Rajat 13.1, Plt Count 111 L, MPV 11.2 Physical Exam Const alert, oriented x3 and no apparent distress HEENT normocephalic Head and Scalp: atraumatic Neck full ROM Resp normal respiratory effort Cardio regular rate GI normal to inspection, nondistended, normoactive bowel sounds GI Narrative: Uterus 2 cm below umbilicus dressing clean/dry Back/Spine normal ROM Extremity normal to inspection Extremity Narrative: Minimal pedal edema Neuro no focal motor deficits and no sensory deficits noted Psych mental status grossly normal and affect normal Assessment & Plan (1) Delivery by section: PLAN: Postop day 1 status post emergent section for nonreassuring heart tones. Ancef continued for 24 hours due to emergent nature of section. Gestational thrombocytopenia, platelets stable. Breast-feeding, to see. Discussed delivery and answered all questions. Discharge home on postop day 2-3. Follow-up 2 weeks postop and 6-week visits. (2) Other acute postprocedural pain: (3) Gestational thrombocytopenia:
[2021-08-10] MEDS: Enoxaparin 40 MG/0.4 ML Syringe SC (11:12)
[2021-08-10] MEDS: Senna/Docusate Sodium 1 Tablet PO (11:12)
[2021-08-10] MEDS: 0.9% Saline Lock 10 ML Syringe IV ×3 (12:30→18:44)
--- NOTE | 2021-08-10 15:05 | CPS ---
nursing to start, left in room,with instruction
[2021-08-11] MEDS: Acetaminophen 500 MG Tablet 1000 MG PO ×3 (00:35→13:30)
[2021-08-11] MEDS: Cefazolin 2 GM in 0.9% Normal Saline 100 ML IV (00:35)
[2021-08-11] MEDS: Ibuprofen 600 MG Tablet PO ×3 (00:36→13:29)
[2021-08-11 02:00] VITALS: BP 125/73; PULSE 68; RESP 16; TEMP 36.6
[2021-08-11 08:03] VITALS: BP 124/85; PULSE 81; RESP 16; TEMP 36.2
--- NOTE | 2021-08-11 09:05 | PCM.PN.OB ---
Subjective Subjective She is sore today, notes pain manageable. OOB, no nausea or vomiting. Tolerates PO. Voiding without difficulty. is latching better. Denies heavy lochia. + flatus. Objective Data Objective Data Vital Signs: Vital Signs Temp Pulse Resp BP Pulse Ox 97.1 F L 81 16 124/85 H 99 08/11/21 08:03 08/11/21 08:03 08/11/21 08:03 08/11/21 08:03 08/10/21 11:20 Oxygen Delivery Method Room Air Weight: 119.295 kg Body Mass Index (BMI) 34.7 Intake & Output: Intake and Output for Last 24 Hours 08/09/21 08/10/21 08/11/21 23:59 23:59 23:59 Intake Total 3135 / 3135 1603.34 / 1603.34 110 / 110 Output Total 1950 / 1950 2100 / 2100 Balance 1185 / 1185 -496.66 / -496.66 110 / 110 Lab / Micro Data Result Diagrams: 08/10/21 06:15 08/09/21 18:50 Physical Exam Const alert, oriented x3 and no apparent distress Resp normal respiratory effort, normal air movement and clear to auscultation bilaterally Cardio regular rate, regular rhythm, S1 normal heart sound and S2 normal heart sound GI normal to inspection, nondistended, normoactive bowel sounds, soft to palpation, non-tender and non-distended Manual OB Exam: other lochia scant Uterus Palpation: uterus fundus firm Extremity no calf tenderness Assessment & Plan (1) Delivery by section: PLAN: POD#2 Doing well, no evidence of infection Prior thrombocytopenia - post op plt 111 Routine postop care May d/c home this afternoon if patient desires
[2021-08-11] MEDS: Senna/Docusate Sodium 1 Tablet PO (09:43)
[2021-08-11] MEDS: Enoxaparin 40 MG/0.4 ML Syringe SC (09:44)
[2021-08-11 13:45] VITALS: BP 124/70; PULSE 73; RESP 16; TEMP 36.6
--- NOTE | 2021-08-11 14:11 | NURSING ---
this RN has reviewed and agrees with all charting by SN Mustapha
== END 2021-08-11 14:05 | disposition home or self-care (01) | DRG 787 ==
PROVIDERS: Admitting Provider Student in an Organized Health Care Education/Training Program; PCP Family Medicine; Referring Provider Student in an Organized Health Care Education/Training Program; Visit Provider Student in an Organized Health Care Education/Training Program
DX: O76 Abnormality in fetal heart rate and rhythm complicating labor and delivery (principal); O99.12 Other diseases of the blood and blood-forming organs and certain disorders involving the immune mechanism complicating childbirth; D69.6 Thrombocytopenia, unspecified; Z37.0 Single live birth; Z3A.40 40 weeks gestation of pregnancy
CPT/HCPCS: 59025; 59050; 80053; 81001; 82570; 83615; 84156; 85025; 85027; 86850; 86900; 86901; 87086; 99218; 99251; J7030; J7120; A4216; G0378; G0463; J2405; J3490

== ENCOUNTER → 2022-07-19 | Outpatient (CLI) | payer OTHER, SELFPAY ==
[2022-07-19 14:32] LABS: Absolute Lymphocyte Count 2.14 X10^3/uL (0.83-4.51); Absolute Neutrophil Count 4.8 X10^3/uL (2.0-7.7); Basophil# 0.06 X10^3/uL; Basophil% 0.8 % (0-1); Eosinophil# 0.16 X10^3/uL; Eosinophils% 2.1 % (0-5); Hematocrit 39.1 % (37-47); Hemoglobin 13.2 g/dL (12.0-15.0); Lymphocyte # 2.14 X10^3/ul (0.83-4.51); Mean Corp Hgb Conc 33.8 g/dL (32-36); Mean Corpuscular Hgb 28.4 pg (27.0-32.0); Mean Corpuscular Volume 84.3 fL (81-99); Mean Platelet Vol. 11.4 fl (6.2-12.0); Monocyte# 0.48 X10^3/uL; Monocyte% 6.3 % (0-10); NRBC Flagged by Analyzer 0 % (0-5); Neutrophil # 4.77 X10^3/uL (2.7-7.7); Neutrophil % 62.5 % (47-70); Platelet Count 154 K/mm3 (150-450); RBC Distribution Width CV 12.8 % (11.6-14.6); RBC Distribution Width SD 39.2 fl (35.1-43.9); Red Blood Count 4.64 M/mm3 (4.2-5.4); White Blood Count 7.6 K/mm3 (4.4-11.0)
[2022-07-19 16:56] LABS: HIV - WCH Non-Reactive (Nonreactive); Hepatitis B Surface Antigen Non-Reactive (Nonreactive); Hepatitis C Antibody Non-Reactive (Nonreactive); Rubella IgG Reactive (Nonreactive); Syphilis Antibodies Non-reactive
[2022-07-22 20:34] LABS: V-Zoster IgG (Immunity) 211 index (Immune >165)
[2022-07-25 18:25] LABS: HPV Reflexed? NOT INDICATED
== END | disposition home or self-care (01) ==
PROVIDERS: PCP Family Medicine; Visit Provider Student in an Organized Health Care Education/Training Program
DX: Z12.4 Encounter for screening for malignant neoplasm of cervix (principal); N91.2 Amenorrhea, unspecified
CPT/HCPCS: 36415; 85025; 86703; 86762; 86780; 86787; 86803; 87086; 87340; 88175; G0145

== ENCOUNTER → 2022-11-11 | Outpatient (CLI) | payer OTHER, SELFPAY ==
[2022-11-11 09:41] LABS: Glucose Challenge Gest 1H 50g 96 mg/dL (70-140)
[2022-11-11 10:05] LABS: Syphilis Antibodies Non-reactive
[2022-11-11 10:19] LABS: Absolute Lymphocyte Count 1.88 X10^3/uL (0.83-4.51); Absolute Neutrophil Count 5.8 X10^3/uL (2.0-7.7); Basophil# 0.03 X10^3/uL; Basophil% 0.4 % (0-1); Eosinophil# 0.09 X10^3/uL; Eosinophils% 1.1 % (0-5); Hematocrit 36.8 % (37-47); Hemoglobin 12.4 g/dL (12.0-15.0); Lymphocyte # 1.88 X10^3/ul (0.83-4.51); Lymphocyte % 22.7 % (19-41); Mean Corp Hgb Conc 33.7 g/dL (32-36); Mean Corpuscular Hgb 29.7 pg (27.0-32.0); Mean Corpuscular Volume 88.2 fL (81-99); Mean Platelet Vol. 10.8 fl (6.2-12.0); Monocyte# 0.42 X10^3/uL; Monocyte% 5.1 % (0-10); NRBC Flagged by Analyzer 0 % (0-5); Neutrophil # 5.84 X10^3/uL (2.7-7.7); Neutrophil % 70.2 % (47-70); POSITIVE COUNT YES; Platelet Count 119 K/mm3 (150-450); RBC Distribution Width CV 14.4 % (11.6-14.6); RBC Distribution Width SD 45.6 fl (35.1-43.9); Red Blood Count 4.17 M/mm3 (4.2-5.4); White Blood Count 8.3 K/mm3 (4.4-11.0)
[2022-11-11 10:20] LABS: Differential Indicated SCAN CRITERIA MET
[2022-11-11 10:21] LABS: Platelet Estimate SLT DEC (ADEQ)
== END | disposition home or self-care (01) ==
LOC: WOBLAB 08:59
PROVIDERS: PCP Family Medicine; Visit Provider Student in an Organized Health Care Education/Training Program
DX: Z34.82 Encounter for supervision of other normal pregnancy, second trimester (principal)
CPT/HCPCS: 36415; 82950; 85025; 86780

== ENCOUNTER 2023-01-15 12:05 | Outpatient (CLI) | payer OTHER, SELFPAY ==
[2023-01-15] VITALS (18 sets, daily range): BP systolic 107; BP diastolic 64; PULSE 69–91; O2SAT 93–100; BMI 31.5
--- NOTE | 2023-01-15 12:33 | EKGRS_ITS ---
Test Reason : CP Blood Pressure : / mmHG Vent. Rate : 081 BPM Atrial Rate : 081 BPM P-R Int : 152 ms QRS Dur : 088 ms QT Int : 396 ms P-R-T Axes : 039 012 010 degrees QTc Int : 460 ms Normal sinus rhythm Normal ECG No previous ECGs available Confirmed by NARA BLANCO, MERY ([id number]), editor school photograph [place] ([id number]) on 01/24/2023 7:27:35 AM Referred By: Jonas Malin Confirmed By:MERY BAINS MD
[2023-01-15 13:08] LABS: Hematocrit 35.6 % (37-47); Hemoglobin 11.9 g/dL (12.0-15.0); Mean Corp Hgb Conc 33.4 g/dL (32-36); Mean Corpuscular Hgb 29.4 pg (27.0-32.0); Mean Corpuscular Volume 87.9 fL (81-99); Mean Platelet Vol. 11.6 fl (6.2-12.0); Platelet Count 102 K/mm3 (150-450); RBC Distribution Width CV 13.3 % (11.6-14.6); RBC Distribution Width SD 42.9 fl (35.1-43.9); Red Blood Count 4.05 M/mm3 (4.2-5.4); White Blood Count 8.3 K/mm3 (4.4-11.0)
[2023-01-15 13:18] LABS: ALB/GLOB Ratio 0.6 RATIO (0.9-2.4); AST(SGOT) 20 U/L (15-37); Alanine Aminotransfer ALT/SGPT 24 U/L (13-56); Alkaline Phosphatase 80 U/L (45-117); Anion Gap 7 (5-15); BUN 5 mg/dL (7-18); BUN/Creat Ratio 8.8 RATIO (10-20); Calcium,Total 8.8 mg/dL (8.5-10.1); Chloride 108 mmol/L (98-107); Creatinine, Serum 0.57 mg/dL (0.55-1.02); EST Glomerular Filtration Rate 133 mL/min (>60); Est Glom Filt Rate - Afr Amer 161 mL/min (>60); Estimated Creatinine Clearance 173.34 ml/min; Globulin 4.7 g/dL (2.2-4.2); Glucose 93 mg/dL (74-106); Potassium 3.5 mmol/L (3.5-5.1); Protein, Total 7.7 g/dL (6.4-8.2); Sodium Level 137 mmol/L (136-145)
--- NOTE | 2023-01-16 08:53 | OB.TRI.NOTE ---
HPI - General General Date of Service: 01/15/23 HPI Narrative PHUONG KEEN, is a 27 F who presents with chest pain [facility] Medical History (Updated 01/16/23 @ 08:[address] Jonas Malin MD) COVID-19 affecting in third trimester H. pylori infection Hydradenitis Ruptured ovarian cyst Scoliosis Home Medications prenat.vits,peng,ybq-ukwr-fkaav 2 tab PO DAILY 04/21/20 [History Last Taken 01/14/23] Acidophilus Probiotic 175 mg PO.IVFORM DAILY supplement 08/09/21 [History Last Taken Unknown] Colace 100 mg PO.IVFORM DAILY constipation 08/09/21 [History Last Taken Unknown] Fish Oil 1,400 mg PO.IVFORM DAILY supplement 08/09/21 [History Last Taken 01/14/23] Allergy/AdvReac Type Severity Reaction Status Date / Time metronidazole [From Flagyl] Allergy Rash Verified 08/15/22 10:11 adhesive tape AdvReac Rash Verified 08/15/22 10:11 Family History Father Thyroid disorder Mother Hypertension Social History Smoking Status: Never smoker alcohol intake: never substance use type: does not use caffeine: Yes what type of physical activity do you participate in: walking and weight training frequency: 3-4 times per week seatbelt use: always do you feel safe at home: Yes 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 2 Elective abortions Hx Para 0 Spontaneous abortions 1 Hx # Term Pregnancies Ectopic pregnancies Hx # Pregnancies Multiple births # of living children 1 NST FHR Rate Baby A Baseline: 120 Variability:: Moderate Accelerations:: 15 x 15 Decelerations:: None NST Reactive:: Yes Uterine Activity:: Few contractions Assessment & Plan (1) : PLAN: Called by nursing patient was working and noticed chest pain. Was sent to the ER but ER only performed vitals per nursing and sent the patient directly to labor and delivery. Nursing states overall patient with no acute distress. Pulse ox and SPO2 within normal limits and blood pressure within normal limits. Patient otherwise asymptomatic. Educated on nursing on need for ER evaluation. But patient states some upper quadrant pain will perform NST and given orders for CBC and CMP along with EKG ordered. Call back by nursing overall labs within normal limits patient is a known gestational thrombocytopenic so low platelets expected after prior labs. LFTs within normal limits. EKG normal sinus. NST reactive. Overall stability and no obvious signs of obstetric related chest pain. Instructed nursing to have patient evaluated in the ER for chest pain. Nursing stated understanding and reassured
== END 2023-01-15 13:45 | disposition home or self-care (01) ==
LOC: WPOUT 12:11 → WP 12:11
PROVIDERS: PCP Family Medicine; Referring Provider Obstetrics & Gynecology; Visit Provider Obstetrics & Gynecology
DX: O99.891 Other specified diseases and conditions complicating pregnancy (principal); R07.9 Chest pain, unspecified; Z3A.00 Weeks of gestation of pregnancy not specified; R10.9 Unspecified abdominal pain
CPT/HCPCS: 36415; 59025; 59050; 80053; 85027; 93005; 99221; G0378

== ENCOUNTER 2023-02-03 05:10 | Inpatient (IN) | payer OTHER, SELFPAY ==
[2023-02-03] VITALS (19 sets, daily range): BP systolic 93–119; BP diastolic 33–88; PULSE 53–96; RESP 15–16; TEMP 36.3–36.5; O2SAT 97–100; BMI 31.6
[2023-02-03] MEDS: Lactated Ringers 1,000 ML 999 ML IV (05:45)
[2023-02-03 05:55] LABS: Absolute Lymphocyte Count 1.96 X10^3/uL (0.83-4.51); Absolute Neutrophil Count 6.2 X10^3/uL (2.0-7.7); Basophil# 0.06 X10^3/uL; Basophil% 0.7 % (0-1); Eosinophil# 0.02 X10^3/uL; Eosinophils% 0.2 % (0-5); Hemoglobin 11.2 g/dL (12.0-15.0); Lymphocyte # 1.96 X10^3/ul (0.83-4.51); Lymphocyte % 21.9 % (19-41); Mean Corp Hgb Conc 32.9 g/dL (32-36); Mean Corpuscular Hgb 29.3 pg (27.0-32.0); Mean Platelet Vol. 11.1 fl (6.2-12.0); Monocyte% 6.7 % (0-10); NRBC Flagged by Analyzer 0 % (0-5); Neutrophil # 6.21 X10^3/uL (2.7-7.7); Neutrophil % 69.4 % (47-70); POSITIVE COUNT YES; Platelet Count 96 K/mm3 (150-450); RBC Distribution Width CV 13.8 % (11.6-14.6); RBC Distribution Width SD 44.6 fl (35.1-43.9); Red Blood Count 3.82 M/mm3 (4.2-5.4)
[2023-02-03] MEDS: Acetaminophen 500 MG Tablet 1000 MG PO ×3 (06:45→19:06)
[2023-02-03] MEDS: Lactated Ringers 1,000 ML 150 ML IV (06:47)
[2023-02-03] MEDS: Sodium Citrate/Citric Acid 30 ML UDC PO (06:58)
--- NOTE | 2023-02-03 07:10 | HP.PCM.OB_ITS ---
History and Physical Date of Admission: 02/03/23 HPI: 27 yo BROOKE 02/25/23 by LMP, admitted for repeat section and bilateral salpingectomy. Reports movement. Denies regular contractions, leaking fluid, vaginal bleeding. Denies headache or vision changes, chest pain or shortness of breath, nausea or vomiting, diarrhea constipation, fevers or chills. complicated by: Prior T-incision on uterus received Celestone on 02/01 and 02/02 OB/UN history: G1: First trimester SAB G2: 41-week emergent section, T-incision G3: Current Medical history: 1. Scoliosis 2. Asthma 3. Hidradenitis Surgical history: 1. section Medications: 1. vitamin 2. Colace 3. Fish oil Allergies: Flagyl and adhesive tape History: Denies history of blood clots or bleeding disorders. Review system: Negative otherwise stated above Visible exam: Blood pressure 119/88, heart rate 96, respirations 15, temp 97.7 ?F, oxygen saturation 97% on room air General: No acute distress HEENT: Normal cephalic/atraumatic Cardiorespiratory: No increased effort Abdomen: Soft, nontender, gravid Extremities: Minimal edema Neurologic: Cranial nerves II through XII grossly intact, no focal deficits Musculoskeletal: Moves all extremities equally heart rate: 125/mod robert/+accel/no decel [place]: quiet Assessment/Plan: 27 yo at 36/6w BROOKE 02/25/23 by LMP, admitted for repeat section and bilateral salpingectomy. complicated by: Prior T- incision on uterus received Celestone on 02/01 and 02/02. ?Admit for repeat section. Ancef 2 g preop. Routine orders ?Gestational thrombocytopenia, stable from December. Anesthesia plan for spinal anesthesia.
[2023-02-03] MEDS: Cefazolin 2 GM in 0.9% Normal Saline 100 ML IV (07:27)
--- NOTE | 2023-02-03 07:56 | FALS_PTH ---
PATIENT: PHUONG KEEN LOC: WP U#:[id number] AGE/SX: 27/F ROOM: WP007 RE02/03/[address]: Dr. Coreen Malin DO : 1995 BED: 1 DIS: 02/05/2023 SPEC #: [id number] RECD: 02/03/23 09:36 STATUS: SHANICE REFermin #: [id number] MARINE: 02/03/23 07:[address]: Coreen Malin DEPT: SURGICAL PATHOLOGY RECD BY: Krystal Bess ENTERED: 02/03/23 09:45 SP TYPE: FALL TUBES OTHR DR: Dr. Tawanda Parker MD Tissues: Fallopian tube Procedures: Surgery Specimen Level II HEADER OPERATION: Tubal ligation PRE-OP DIAGNOSIS: Sterilization TISSUE SUBMITTED: Fallopian tubes, stitch in left tube MICROSCOPIC DIAGNOSIS Right fallopian tube, salpingectomy: No pathologic change. Left fallopian tube, salpingectomy: No pathologic change. AM:bishop 02/06/2023 MICROSCOPIC DESCRIPTION Slides are reviewed. GROSS DESCRIPTION Received in fixative is one container labeled with the patient's name and designated bilateral fallopian tubes, left stitch. The specimen consists of bilateral fallopian tubes including fimbrial ends. The right fallopian tube measures 5.5 cm in length and up to 0.9 cm in diameter and left fallopian tube measures 6.5 cm in length and 0.7 cm in diameter. Sections reveal unremarkable cut surfaces. Superintendent Production sections are submitted in two cassettes as follows: 1 - right fallopian tube, 2 - left fallopian tube. / SJ:rg 02/03/2023 TC:4 CPT: 47809 x2
--- NOTE | 2023-02-03 08:46 | OP.PCM_ITS ---
Maternal Data Information Final BROOKE: 02/25/23 Final BROOKE Source: LMP Details Operative Information Date of Procedure: 02/03/23 Pre-Operative Diagnosis: Pratt intrauterine , history of uterine T- incision, desires permanent sterilization Post-Operative Diagnosis: Pratt intrauterine , history of uterine T-incision, desires permanent sterilization Indications Narrative: This is a 27-year-old G3, P1 at 36/6 weeks, BROOKE 02/25/2023 by LMP, admitted for repeat section for history of T-incision of the uterus. Patient also desired permanent sterilization. All risk, benefits, alternatives discussed with the patient. Risk include but are not limited to: Risk of bleeding to the point of transfusion, infection, injury to surrounding tissue including bowel/bladder potentially requiring prolonged Andrea catheter use, VTE, ICU admission. Patient also aware of risk of regret of permanent sterilization. Patient to notify provider if she were to become due to risk of ectopic . Classification: Scheduled Procedure Type: low transverse community service patrol officer #1: Al Castellanos Type of Anesthesia: Spinal Antibiotic Given: Ancef 2 grams IV x1 Estimated Blood Loss: 800cc Fluids Replaced: 1000cc Findings Description of Procedure: Patient taken to the operating room and spinal anesthesia placed. Patient placed in the supine position with left lateral tilt. Prepped and draped in the usual sterile fashion. Pfannenstiel skin incision made with scalpel and carried down through subcutaneous tissue. Fascia nicked on either side of midline and extended bluntly. Donovan clamps placed at the superior fascial edge which was tented up and underlying rectus muscles were dissected off bluntly and sharply at midline using Zavala scissors. Donovan clamps then moved to inferior fascial edge which was tented up and underlying rectus muscles were dissected off in a similar fashion. Hemostats used to separate rectus muscle superiorly. Peritoneum grasped with 2 hemostats and incised with Metzenbaum scissors. Extended bluntly. Bladder blade placed. Low transverse uterine incision made with scalpel and extended bluntly. Amniotomy clear fluid. Hand placed into the uterine cavity and head elevated to the level of the hysterotomy. With the assi stance of gentle fundal pressure head delivered followed by body, no nuchal cord. Cord clamped and cut. Baby handed to nursing. Manual extraction of placenta. Uterus exteriorized and cleared of all clots. Bladder blade placed. Noted at the right edge of the incision there was an extension of hysterotomy,with a band of uterine tissue across the extension. Lower edge of the right part of the hysterotomy reapproximated with the band of uterine tissue using a running locking stitch. Then the hysterotomy closed with a running stitch. A second vertical imbricating stitch was completed. Hemostatic with 1 [id number] at the left edge and second layer of imbrication from the midline of the hysterotomy towards the right edge. Desire for sterilization confirmed. Right fallopian tube grasped with Suni clamps and removed along the mesosalpinx using LigaSure device from the fimbria to the cornua. Left fallopian tube grasped with Suni clamps and removed along mesosalpinx using LigaSure device from the fimbria to the cornua. Mesosalpinx hemostatic. Uterus replaced into the abdominal cavity. Hemostasis confirmed. Rosi placed along the hysterotomy. Peritoneum closed with a running stitch. Muscles reapproximated with horizontal mattress sutures. Fascia closed with a running stitch. Subcutaneous tissue irrigated. Scar from prior section was noted to be keloid, grasped with Allis clamps and removed using a scalpel. Subcutaneous tissue reapproximated with suture. Skin closed with a running subcuticular stitch. At the end of the procedure all needle, lap, sponge counts were correct. Urine output: 200 cc clear yellow urine A Gender: Male (1 minute): 8 (5 minute): 9 Complications Complications: None
[2023-02-03 08:50] LABS: Syphilis Antibodies Non-reactive
[2023-02-03] MEDS: Oxytocin 15 Units/NS 250ml 15 UNITS/250 ML IV.SOLN 83 UNITS IV (09:00)
[2023-02-03 09:36] LABS: Pathology Specimen OB SEE PATHOLOGY REPORT
[2023-02-03] MEDS: Ketorolac 30 MG/ML Syringe IV ×3 (09:36→21:30)
[2023-02-03] MEDS: 0.9% Saline Lock 10 ML Syringe IV (09:36)
[2023-02-03 10:36] LABS: Group B Strep DNA By PCR Negative (Negative); Internal Control PASS; Probe Check PASS; Specimen Processing Control PASS
[2023-02-03] MEDS: Lactated Ringers 1,000 ML 100 ML IV (12:01)
[2023-02-03] MEDS: Methylergonovine 0.2 MG/ML Ampul IM (12:42)
[2023-02-03] MEDS: Senna/Docusate Sodium 1 Tablet PO (12:52)
[2023-02-04 00:35] VITALS: BP 97/54; PULSE 64; RESP 14; TEMP 36.4
[2023-02-04] MEDS: Acetaminophen 500 MG Tablet 1000 MG PO ×4 (00:38→19:28)
[2023-02-04 03:44] VITALS: BP 97/62; PULSE 60; RESP 14; TEMP 36.8
[2023-02-04] MEDS: Ketorolac 30 MG/ML Syringe IV (03:46)
[2023-02-04 05:33] LABS: Hematocrit 32.1 % (37-47); Hemoglobin 10.3 g/dL (12.0-15.0); Mean Corp Hgb Conc 32.1 g/dL (32-36); Mean Corpuscular Hgb 29.3 pg (27.0-32.0); Mean Corpuscular Volume 91.2 fL (81-99); Mean Platelet Vol. 11.3 fl (6.2-12.0); POSITIVE COUNT YES; Platelet Count 99 K/mm3 (150-450); RBC Distribution Width SD 46.5 fl (35.1-43.9); Red Blood Count 3.52 M/mm3 (4.2-5.4); White Blood Count 10.3 K/mm3 (4.4-11.0)
[2023-02-04 05:47] LABS: ALB/GLOB Ratio 0.7 RATIO (0.9-2.4); AST(SGOT) 30 U/L (15-37); Alanine Aminotransfer ALT/SGPT 34 U/L (13-56); Albumin, Serum 2.5 g/dL (3.2-5.0); Alkaline Phosphatase 73 U/L (45-117); Anion Gap 6 (5-15); BUN 7 mg/dL (7-18); BUN/Creat Ratio 11.1 RATIO (10-20); Calcium,Total 8.3 mg/dL (8.5-10.1); Chloride 109 mmol/L (98-107); Creatinine, Serum 0.63 mg/dL (0.55-1.02); EST Glomerular Filtration Rate 118 mL/min (>60); Est Glom Filt Rate - Afr Amer 143 mL/min (>60); Estimated Creatinine Clearance 152.05 ml/min; Globulin 3.8 g/dL (2.2-4.2); Glucose 74 mg/dL (74-106); Protein, Total 6.3 g/dL (6.4-8.2); Sodium Level 140 mmol/L (136-145)
[2023-02-04 09:14] VITALS: BP 98/62; PULSE 90; RESP 16; TEMP 37.1; O2SAT 99
[2023-02-04] MEDS: Ibuprofen 600 MG Tablet PO ×3 (09:36→21:17)
[2023-02-04] MEDS: Senna/Docusate Sodium 1 Tablet PO (09:36)
--- NOTE | 2023-02-04 10:17 | PN.OBGYN_ITS ---
Subjective Subjective Patient feeling well. Pain controlled. Lochia minimal. Objective Data Objective Data Vital Signs: Vital Signs Temp Pulse Resp BP Pulse Ox O2 Del Method 98.7 F 90 16 98/62 99 Room Air 02/04/23 09:14 02/04/23 09:14 02/04/23 09:14 02/04/23 09:14 02/04/23 09:14 02/04/23 09:14 Oxygen Delivery Method Room Air Weight: 108.409 kg Body Mass Index (BMI) 31.6 Intake & Output: Intake and Output for Last 24 Hours 02/02/23 02/03/23 02/04/23 23:59 23:59 23:59 Intake Total 3353.33 / 3353.33 Output Total 2808 / 2808 600 / 600 Balance 545.33 / 545.33 -600 / -600 Lab / Micro Data Attestation: I reviewed the patient's lab results. 02/04/23 05:20 02/04/23 05:20 Labs: Laboratory Results - last 24 hr 02/03/23 07:40: Group B Strep DNA Negative, Specimen Comment Not Reportable 02/04/23 05:20: WBC 10.3, RBC 3.52 L, Hgb 10.3 L, Hct 32.1 L, MCV 91.2, MCH 29.3, MCHC 32.1, RDW Std Deviation 46.5 H, RDW Coeff of Rajat 14.0, Plt Count 99 L , MPV 11.3, Sodium 140, Potassium 4.0, Chloride 109 H, Carbon Dioxide 25.0, Anion Gap 6, BUN 7, Creatinine 0.63, Estim Creat Clear Calc 152.05, Est GFR (MDRD) Af Amer 143, Est GFR (MDRD) Non-Af 118, BUN/Creatinine Ratio 11.1, Gl ucose 74, Calcium 8.3 L, Total Bilirubin 0.20, AST 30, ALT 34, Alkaline Phosp hatase 73, Total Protein 6.3 L, Albumin 2.5 L, Globulin 3.8, Albumin/Globulin Ratio 0.7 L Physical Exam Const alert, oriented x3 and no apparent distress HEENT normocephalic Head and Scalp: atraumatic Neck full ROM Resp normal respiratory effort Cardio regular rate GI normal to inspection, nondistended, normoactive bowel sounds GI Narrative: Uterus 2 cm below umbilicus, dressing clean and dry Back/Spine normal ROM Extremity normal to inspection Extremity Narrative: Minimal pedal edema Neuro no focal motor deficits and no sensory deficits noted Psych mental status grossly normal and affect normal Assessment & Plan (1) Gestational thrombocytopenia: PLAN: Postop day 1 status post repeat section bilateral salpingectomy. Complicated by gestational thrombocytopenia, platelets stable today. Acute blood loss anemia secondary to surgery, iron supplement on home-going. Desires home-going tomorrow. (2) Other acute postprocedural pain: (3) Delivery by section:
[2023-02-04 13:39] VITALS: BP 97/54; PULSE 56; RESP 16; TEMP 36.7; O2SAT 98
[2023-02-04 19:55] VITALS: BP 119/72; PULSE 62; RESP 18; TEMP 36.2; O2SAT 100
[2023-02-05] MEDS: Acetaminophen 500 MG Tablet 1000 MG PO ×2 (00:52→07:32)
[2023-02-05 03:19] VITALS: BP 99/46; PULSE 64; RESP 16; TEMP 36.6; O2SAT 97
[2023-02-05] MEDS: Ibuprofen 600 MG Tablet PO ×2 (03:20→09:40)
[2023-02-05 07:45] VITALS: BP 107/71; PULSE 76; RESP 18; TEMP 36.2; O2SAT 99
--- NOTE | 2023-02-05 08:03 | PCM.PN.OB ---
Subjective Subjective Feeling well. Lochia minimal. A little sore, controlled with medications. Breast-feeding going well. Objective Data Objective Data Vital Signs: Vital Signs Temp Pulse Resp BP Pulse Ox O2 Del Method 97.8 F 64 16 99/46 L 97 Room Air 02/05/23 03:19 02/05/23 03:19 02/05/23 03:19 02/05/23 03:19 02/05/23 03:19 02/05/23 03:19 Oxygen Delivery Method Room Air Weight: 108.409 kg Body Mass Index (BMI) 31.6 Intake & Output: Intake and Output for Last 24 Hours 02/03/23 02/04/23 02/05/23 23:59 23:59 23:59 Intake Total 3353.33 / 3353.33 Output Total 2808 / 2808 600 / 600 Balance 545.33 / 545.33 -600 / -600 Lab / Micro Data 02/04/23 05:20 02/04/23 05:20 Physical Exam Const alert, oriented x3 and no apparent distress HEENT normocephalic Head and Scalp: atraumatic Neck full ROM Resp normal respiratory effort Cardio regular rate GI normal to inspection, nondistended, normoactive bowel sounds GI Narrative: Uterus 2 cm below umbilicus, dressing clean and dry Back/Spine normal ROM Extremity normal to inspection Extremity Narrative: Minimal pedal edema Neuro no focal motor deficits and no sensory deficits noted Psych mental status grossly normal and affect normal Assessment & Plan (1) Gestational thrombocytopenia: PLAN: Postop day 2 status post repeat section bilateral salpingectomy. Complicated by gestational thrombocytopenia, platelets stable today. Acute blood loss anemia secondary to surgery, iron supplement on home-going. Home today. (2) Other acute postprocedural pain: (3) Delivery by section:
--- NOTE | 2023-02-05 08:04 | DS.PCM_ITS ---
Providers Date of Admission: 02/03/23 Primary Care Physician: Dr. Tawanda Parker MD Reason For Visit: REPEAT C SECTION Diagnosis Discharge Diagnosis (1) Gestational thrombocytopenia: Status: Acute Code(s): O99.119 - Other diseases of the blood and blood-forming organs and certain disorders involving the immune mechanism complicating , unspecified trimester; D69.6 - Thrombocytopenia, unspecified Plan: Postop day 2 status post repeat section bilateral salpingectomy. Complicated by gestational thrombocytopenia, platelets stable today. Acute blood loss anemia secondary to surgery, iron supplement on home-going. Home today. (2) Other acute postprocedural pain: Status: Acute Code(s): G89.18 - Other acute postprocedural pain (3) Delivery by section: Status: Acute Medications at Discharge Home Medications prenat.vits,peng,ram-sifh-qyrsy 2 tab PO DAILY 04/21/20 Colace 100 mg PO.IVFORM DAILY constipation 08/09/21 Fish Oil 1,400 mg PO.IVFORM DAILY supplement 08/09/21 oxycodone 5 mg tablet 5 mg PO Q6H PRN pain (scale score 7-10) 4 days #14 tabs 02/03/23 Hospital Course Operations section Summary of Care Provided Hospital Course: Patient admitted for repeat section and bilateral salpingectomy. Stable for discharge postop day 2. Physical Exam Const alert, oriented x3 and no apparent distress HEENT normocephalic Head and Scalp: atraumatic Neck full ROM Resp normal respiratory effort Cardio regular rate GI normal to inspection, nondistended, normoactive bowel sounds GI Narrative: Uterus 2 cm below umbilicus, dressing clean and dry Back/Spine normal ROM Extremity normal to inspection Extremity Narrative: Minimal pedal edema Neuro no focal motor deficits and no sensory deficits noted Psych mental status grossly normal and affect normal Weight / BMI Weight Weight: 108.409 kg Body Mass Index (BMI) 31.6 ABG / Lab / Microbiology Data 02/04/23 05:20 02/04/23 05:20 D/C Instructions Discharge Diet: No restrictions May resume sexual activity in: 4-6 weeks Weight Bearing Status: Weight bearing as tolerated Call your doctor if your incision/area has: Continuous Slow Oozing, Increased Redness and Swelling at the incision site Call your doctor if you observe: Fever of 101 or Higher, Change in Color, Inability to urinate, Using more than 1 pad per hour, Shortness of breath, Dizzi ness, Swelling in the ankles, Chest pain and Calf discomfort Cleanse incision/area with: Soap & Water and Keep Dressing Clean & Dry Please Follow Up With: Coreen Malin DO When: 2-week and 6-week visit Meaningful Use Info Meaningful Use Diagnoses (Choose all that apply): None applicable Discharge Plan Admission Admit Date/Time: 02/03/23 05:10 Primary Reason for Your Visit: section Attending Provider: Coreen Malin Primary Care Provider: Tawanda Parker Discharge Orders/Prescriptions Prescriptions: New oxycodone 5 mg tablet 5 mg PO Q6H PRN (Reason: pain (scale score 7-10)) 4 Days Qty: 14 0RF Continued prenat.vits,peng,xqb-qkpe-vufkq Tablet 2 tab PO DAILY Colace 100 mg PO.IVFORM DAILY Fish Oil 1,400 mg PO.IVFORM DAILY Referrals / Follow Up: Tawanda Parker MD [Primary Care Provider] - Disposition Disposition (needs filled in before D/C Order can be placed): Home, Self Care
--- NOTE | 2023-02-05 08:04 | DCINST_ITS ---
Discharge Instructions Diet Discharge Diet: No restrictions Activity Discharge Activity: Return to Normal Activity and May Shower May resume sexual activity in: 4-6 weeks Weight Bearing Status: Weight bearing as tolerated Lifting Restrictions: No greater than 25 pounds Dressing / Incision Call your doctor if your incision/area has: Continuous Slow Oozing, Increased Redness and Swelling at the incision site Call your doctor if you observe: Fever of 101 or Higher, Change in Color, Inability to urinate, Using more than 1 pad per hour, Shortness of breath, Dizziness, Swelling in the ankles, Chest pain and Calf discomfort Remove Dressing in: 1 week Cleanse incision/area with: Soap & Water and Keep Dressing Clean & Dry Follow Up Care Please Follow Up With: Coreen Malin DO When: 2-week and 6-week visit Test Results: Test results from this visit will be discussed in further detail at your follow- up appointment, if applicable. Discharge Plan Admission Admit Date/Time: 02/03/23 05:10 Primary Reason for Your Visit: section Attending Provider: Coreen Malin Primary Care Provider: Tawanda Parker Discharge Orders/Prescriptions Prescriptions: New oxycodone 5 mg tablet 5 mg PO Q6H PRN (Reason: pain (scale score 7-10)) 4 Days Qty: 14 0RF Continued prenat.vits,peng,mex-rwwv-cadcl Tablet 2 tab PO DAILY Colace 100 mg PO.IVFORM DAILY Fish Oil 1,400 mg PO.IVFORM DAILY Referrals / Follow Up: Tawanda Parker MD [Primary Care Provider] - Disposition Disposition (needs filled in before D/C Order can be placed): Home, Self Care
[2023-02-05] MEDS: Senna/Docusate Sodium 1 Tablet PO (09:40)
== END 2023-02-05 10:00 | disposition home or self-care (01) | DRG 784 ==
PROVIDERS: Admitting Provider Student in an Organized Health Care Education/Training Program; PCP Family Medicine; Visit Provider Student in an Organized Health Care Education/Training Program
PROC: 0UT70ZZ Resection of Bilateral Fallopian Tubes, Open Approach (ICD-10-PCS; CPT 59514; principal; 2023-02-03 07:15)
DX: O34.218 Maternal care for other type scar from previous cesarean delivery (principal); O99.12 Other diseases of the blood and blood-forming organs and certain disorders involving the immune mechanism complicating childbirth; D62 Acute posthemorrhagic anemia; D69.6 Thrombocytopenia, unspecified; L91.0 Hypertrophic scar; O99.72 Diseases of the skin and subcutaneous tissue complicating childbirth; Z3A.36 36 weeks gestation of pregnancy; Z30.2 Encounter for sterilization; Z37.0 Single live birth; O90.81 Anemia of the puerperium
CPT/HCPCS: 59025; 59050; 80053; 85025; 85027; 86780; 86850; 86900; 86901; 87081; 87653; 88302; 99221; J7120; A4216; G0378; J2405

== ENCOUNTER → 2024-05-23 | Outpatient (CLI) | payer OTHER, SELFPAY ==
[2024-05-23 09:10] LABS: Microalbumin,Random Urine 21.2 mg/L (NO RANGE EST.); Microalbumin:Creatinine Ratio 7.7 mg/g CRE (<30 mg/g CRE)
[2024-05-23 09:12] LABS: Vitamin B12 491 pg/mL (211-911); Vitamin D,25 Hydroxy 36.7 ng/mL
[2024-05-23 10:13] LABS: International Normalized Ratio 1.1; Prothrombin Time (Protime)PT. 13.8 SECONDS (11.7-14.9)
[2024-05-23 10:14] LABS: Partial Thromboplast Time 29.1 Seconds (24.1-36.2)
== END | disposition home or self-care (01) ==
LOC: LAB 07:54
PROVIDERS: PCP Nurse Practitioner Family; Referring Provider Nurse Practitioner Family; Visit Provider Nurse Practitioner Family
DX: R23.3 Spontaneous ecchymoses (principal); R80.9 Proteinuria, unspecified; E53.8 Deficiency of other specified B group vitamins; E55.9 Vitamin D deficiency, unspecified
CPT/HCPCS: 36415; 82043; 82306; 82570; 82607; 82746; 85610; 85730

== ENCOUNTER 2024-07-15 10:39 | Outpatient (REF) | payer SELFPAY ==
[2024-07-15 10:40] VITALS: BP 131/79; PULSE 53; RESP 16; TEMP 36.8; O2SAT 99; BMI 25.7
--- NOTE | 2024-07-15 11:19 | EX.ED.VIS.EY ---
HPI History of Present Illness Chief Complaint: Occup Expose Narrative Narrative: Chief complaint and HPI: Occupational exposure. 29-year-old female with no significant past medical history who is an employee at [employer] presents for evaluation for occupational exposure. 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 She states that she put her hand over the patient's site to stop the bleeding from the dislodgment of the lines and she accidentally obtained a needlestick in her finger during the process. She is up-to-date on vaccines. The patient she was taking care of has no reported hepatitis B or C as well as HIV in his chart. Review of systems: See HPI Medications: As listed on the chart Allergies: As listed on the chart PFSH: Per chart Vital signs: As listed on the chart. Reviewed. Physical exam: Gen: A&O x3, NAD Head: Normocephalic, atraumatic Eyes: No sclera icterus, conjunctiva clear ENT: Moist mucous membranes CV: RRR, no murmurs Resp: Lungs CTA BL, no w/r/c Musc: Full ROM, no deformity Skin: Warm, dry Neuro: Alert, oriented, grossly intact Psych: Cooperative, appropriate mood and affect [facility] History Gestational thrombocytopenia COVID-19 affecting in third trimester Ruptured ovarian cyst H. pylori infection Scoliosis Hydradenitis Home Medications ?Medication ?Instructions ?Recorded ?Last Taken ?Type acetaminophen 500 mg tablet 1,000 mg PO Q6H PRN 09/25/23 Unknown History (Tylenol Extra Strength) Allergy/AdvReac Type Severity Reaction Status Date / Time metronidazole (From Flagyl) Allergy Rash Verified 07/15/24 10:40 adhesive tape AdvReac Rash Verified 07/15/24 10:40 Family History Father Thyroid disorder Mother Hypertension Mother Uterine cancer Sister Thyroid disorder Surgical History (Updated 06/05/24 @ 12:04 by NELLY Miller) History of salpingectomy Previous section Delivery by section Social History (Updated 06/05/24 @ 11:38 by Jillian Enriquez) number of children: 2 sexually active: Yes Smoking Status: Never smoker alcohol intake: never substance use type: does not use caffeine: Yes what type of physical activity do you participate in: walking and weight training frequency: 3-4 times per week seatbelt use: always do you feel safe at home: Yes additional social history: Dialysis Nurse for [employer] EXAM Physical Exam Const Vital Signs: 07/15/24 10:40 Temperature 98.3 F Temperature Source Oral Pulse Rate 53 L Respiratory Rate 16 Blood Pressure 131/79 H Blood Pressure Mean 96 Pulse Ox 99 Oxygen Delivery Method Room Air MDM MDM MDM Narrative Medical decision making narrative: 29-year-old female with no significant past medical history who is an employee at [employer] presents for evaluation for occupational exposure. Patient was accidentally stuck by a needle in her finger. No reported hepatitis or HIV in the medical record of the source. Patient is up-to-date on vaccines. Patient has no complaints. Post exposure labs were drawn including hepatitis and HIV. Patient would like to return back to work. Patient stable to discharge home. Follow-up with occupational health. She confirmed understanding of the plan. Impression: 1. Occupational exposure 2. Needlestick Discharge Plan Triage Chief Complaint: Occup Expose ED Provider: Cy Abdi Dx/Rx/DC Orders Prescriptions: No Action acetaminophen [Tylenol Extra Strength] 500 mg tablet 1,000 mg PO Q6H PRN Primary Care Provider: Leatha Garvin Referrals: Leatha Garvin, MARYELLEN-C [Primary Care Provider] - Print Language: Venezuelan
[2024-07-15 15:58] LABS: Hepatitis B Surface Antibody Reactive; Hepatitis B Surface Antigen Non-Reactive (Nonreactive); Hepatitis C Antibody Non-Reactive (Nonreactive)
[2024-07-16 22:09] LABS: HIV - WCH Non-Reactive (Nonreactive)
== END 2024-07-15 11:44 | disposition home or self-care (01) ==
LOC: ED 10:39
PROVIDERS: PCP Nurse Practitioner Family; Visit Provider Surgery
DX: W46.0XXA Contact with hypodermic needle, initial encounter (principal); Z77.21 Contact with and (suspected) exposure to potentially hazardous body fluids
CPT/HCPCS: 36415; 86703; 86706; 86803; 87340

== ENCOUNTER → 2024-07-31 | Outpatient (CLI) | payer OTHER, SELFPAY ==
[2024-07-31 17:23] LABS: Absolute Lymphocyte Count 2.16 X10^3/uL (0.83-4.51); Basophil# 0.06 X10^3/uL; Basophil% 0.9 % (0-1); Eosinophil# 0.13 X10^3/uL; Eosinophils% 1.9 % (0-5); Hematocrit 43.5 % (37-47); Hemoglobin 14.1 g/dL (12.0-15.0); Lymphocyte # 2.16 X10^3/ul (0.83-4.51); Lymphocyte % 31.5 % (19-41); Mean Corp Hgb Conc 32.4 g/dL (32-36); Mean Corpuscular Hgb 27.9 pg (27.0-32.0); Mean Platelet Vol. 10.3 fl (6.2-12.0); Monocyte# 0.52 X10^3/uL; Monocyte% 7.6 % (0-10); NRBC Flagged by Analyzer 0 % (0-5); Neutrophil # 3.96 X10^3/uL (2.7-7.7); Neutrophil % 57.8 % (47-70); Platelet Count 188 K/mm3 (150-450); RBC Distribution Width CV 13.4 % (11.6-14.6); RBC Distribution Width SD 41.6 fl (35.1-43.9); Red Blood Count 5.06 M/mm3 (4.2-5.4); White Blood Count 6.9 K/mm3 (4.4-11.0)
[2024-07-31 17:41] LABS: Vitamin B12 404 pg/mL (211-911)
[2024-07-31 18:16] LABS: AST(SGOT) 19 U/L (15-37); Alanine Aminotransfer ALT/SGPT 20 U/L (13-56); Albumin, Serum 4.3 g/dL (3.2-5.0); Alkaline Phosphatase 61 U/L (45-117); Anion Gap 7 (5-15); BUN 10 mg/dL (7-18); BUN/Creat Ratio 9.6 RATIO (10-20); Calcium,Total 9.2 mg/dL (8.5-10.1); Chloride 104 mmol/L (98-107); Creatinine, Serum 1.04 mg/dL (0.55-1.02); EST Glomerular Filtration Rate 66 mL/min (>60); Est Glom Filt Rate - Afr Amer 79 mL/min (>60); Globulin 4.4 g/dL (2.2-4.2); Glucose 105 mg/dL (74-106); Magnesium 2.4 mg/dL (1.6-2.6); Potassium 3.6 mmol/L (3.5-5.1); Protein, Total 8.7 g/dL (6.4-8.2); Sodium Level 137 mmol/L (136-145); T4 Free Direct 0.78 ng/dL (0.76-1.46)
== END | disposition home or self-care (01) ==
LOC: VSLAB 16:03
PROVIDERS: PCP Nurse Practitioner Family; Visit Provider Nurse Practitioner Family
DX: R00.2 Palpitations (principal); R53.83 Other fatigue
CPT/HCPCS: 36415; 80053; 82306; 82607; 83735; 84439; 84443; 85025

== ENCOUNTER → 2025-02-12 | Outpatient (CLI) | payer OTHER, SELFPAY ==
[2025-02-12 15:28] LABS: Hematocrit 37.4 % (37-47); Hemoglobin 12.4 g/dL (12.0-15.0); Immature Granulocytes Count 0.010 X10^3/uL (0.0-0.0); Mean Corp Hgb Conc 33.2 g/dL (32-36); Mean Corpuscular Volume 85.8 fL (81-99); Mean Platelet Vol. 10.8 fl (6.2-12.0); NRBC Flagged by Analyzer 0 % (0-5); Platelet Count 155 K/mm3 (150-450); RBC Distribution Width CV 13.0 % (11.6-14.6); RBC Distribution Width SD 40.1 fl (35.1-43.9); Red Blood Count 4.36 M/mm3 (4.2-5.4); White Blood Count 4.8 K/mm3 (4.4-11.0)
[2025-02-12 16:03] LABS: AST(SGOT) 19 U/L (<=31); Alanine Aminotransfer ALT/SGPT 13 U/L (<=34); Albumin, Serum 4.5 g/dL (3.5-5.0); Alkaline Phosphatase 39 U/L (35-104); Anion Gap 11 (5-15); BUN 12 mg/dL (4-19); BUN/Creat Ratio 13.1 RATIO (10-20); Calcium,Total 9.4 mg/dL (7.6-11.0); Carbon Dioxide 25.1 mmol/L (21.0-32.0); Chloride 103 mmol/L (98-108); Globulin 3.0 g/dL (2.2-4.2); Glucose 73 mg/dL (70-99); Potassium 4.1 mmol/L (3.3-5.1)
== END | disposition home or self-care (01) ==
LOC: VSLAB 13:56
PROVIDERS: PCP Nurse Practitioner Family; Visit Provider Nurse Practitioner Family
DX: R55 Syncope and collapse (principal)
CPT/HCPCS: 36415; 80053; 83036; 84443; 85025

== ENCOUNTER → 2025-02-27 | Outpatient (CLI) | payer OTHER, SELFPAY ==
--- NOTE | 2025-02-27 13:54 | ECHOD_ITS ---
Reason For Study Reason For Study: SYNCOPE Procedure This was a 2D Doppler, Color Flow transthoracic echocardiogram. Exam performed in department. Left Ventricle Normal LV size. The left ventricular ejection fraction is 55 %. No regional wall motion abnormalities noted. Right Ventricle Normal RV size. Normal systolic function. Atria Normal left atrium. Normal right atrium. Mitral Valve Normal mitral valve. Tricuspid Valve Normal tricuspid valve. Aortic Valve Normal aortic valve. Pulmonic Valve Normal pulmonic valve. Great Vessels Normal aortic root. The pulmonary artery is normal size. Inferior vena cava collapse with respiration. Pericardium/Pleural No pericardial effusion. MMode/2D Measurements & Calculations LVIDd: 4.1 cm IVSd: 1.1 cm LVOT diam: 2.0 cm LVIDs: 3.2 cm LVPWd: 0.81 cm LVOT area: 3.0 cm2 RVDd: 3.6 cm FS: 20.8 % CO(Teich): 2.1 l/min Ao root diam: 3.2 cm LAV(MOD- bp): 34.9 ml LAV(MOD- bp) Indexed: 16.8 ml/m2 LAV(MOD- sp2): 30.0 ml LAV(MOD- sp4): 33.0 ml CO(MOD-sp4): 4.0 l/min SV(sp4- el): 65.7 ml LVAd ap4: 32.3 cm2 SV(MOD-sp4): 61.9 ml LVLd ap4: 7.7 cm EDV(MOD-sp4): 109.7 ml SI(MOD-sp4): 29.7 ml/m2 EDV(sp4-el): 114.3 ml LVAs ap4: 18.7 cm2 LVLs ap4: 6.1 cm ESV(MOD-sp4): 47.8 ml ESV(sp4-el): 48.6 ml EF(MOD-sp4): 56.4 % EF(sp4-el): 57.5 % LA A4 area: 15.2 cm2 LA dimension(2D): 3.0 cm RA A4 area: 10.3 cm2 Time Measurements MV dec time: 0.13 sec Doppler Measurements & Calculations MV E max vazquez: 92.2 cm/sec Lat Peak E' Vazquez: 16.6 cm/sec Med Peak E' Vazquez: 13.7 cm/sec MV A max vazquez: 65.8 cm/sec E/E' lat: 5.6 E/E' med: 6.7 MV E/A: 1.4 MV V2 max: 109.6 cm/sec Ao V2 max: 155.9 cm/sec MV max P.8 mmHg MV dec slope: 752.3 cm/sec2 Ao max P.7 mmHg MV V2 mean: 74.7 cm/sec Ao V2 mean: 112.5 cm/sec MV mean P.5 mmHg Ao mean P.7 mmHg MV V2 VTI: 28.1 cm Ao V2 VTI: 32.1 cm AV (velocity ratio): 0.93 MVA(VTI): 3.2 cm2 ASUNCION(I,D): 2.8 cm2 ASUNCION(V,D): 2.6 cm2 LV V1 max: 134.7 cm/sec CO(LVOT): 7.1 l/min PA V2 max: 96.7 cm/sec LV V1 max P.3 mmHg SV(LVOT): 90.7 ml PA V2 mean: 67.6 cm/sec LV V1 mean P.6 mmHg LV V1 mean: 102.8 cm/sec LV V1 VTI: 29.9 cm ECHO/Echo Complete Interpretation Summary Normal LV size. The left ventricular ejection fraction is 55 %. Structurally normal valves. Ordering Physician: Perla Main Referring Physician: Perla Main Performed By: Yolanda Cotter RCS
== END | disposition home or self-care (01) ==
LOC: CVS 13:53
PROVIDERS: PCP Nurse Practitioner Family; Referring Provider Nurse Practitioner Family; Visit Provider Nurse Practitioner Family
DX: R55 Syncope and collapse (principal)
CPT/HCPCS: 93306